=== PATIENT | male | born 1965 | race Caucasian/White ===

== ENCOUNTER → 2017-11-27 10:53 | Outpatient (CLI) | payer OTHER, SELFPAY ==
--- NOTE | 2017-11-27 | DI.CT.S_ITS ---
PROCEDURE: CT ABDOMEN PELVIS WO/W CON INDICATIONS: Painless, gross hematuria TECHNIQUE: Optional 5 mm thick noncontrast images acquired from the diaphragm to the symphysis pubis. After the administration of intravenous contrast, 5 mm thick images acquired from the diaphragm to the symphysis pubis after a 10-minute delay. 2 mm thick coronal and sagittal reformats were then performed of the kidneys and ureters. For radiation dose reduction, the following was used: automated exposure control, adjustment of mA and/or kV according to patient size. COMPARISON: [facility], CT, KIDNEY/ URETER/BLADDER, 09/14/2017, 20:01. [facility], US, RENAL COMPLETE, 10/01/2017, 11:13. FINDINGS: Image quality: Excellent. Lung bases: Lung bases are clear. Heart size is normal. Urinary system: Both kidneys are normal in size, without hydronephrosis or nephrolithiasis on pre-contrast images. No perinephric fat stranding. There is normal bilateral renal enhancement. There are at least 6 cysts present in the right kidney, the largest in the upper pole medially measuring 1.7 cm and the largest in the lower pole posteriorly measuring 1.1 cm. Renal calyces appear normal in morphology when filled with contrast. Opacified portions of both ureters demonstrate normal caliber. Bladder wall shows mild, uniform thickening. No calcified bladder stones. Other solid organs: Liver is normal in size and enhancement. Gallbladder appears normal. Biliary system is non dilated. Pancreas enhances normally. Spleen is normal in size and enhancement. No adrenal nodules. Peritoneum and bowel: Bowel loops demonstrate normal wall thickness and caliber. Normal appendix. No free fluid or air. Nodes and vessels: No retroperitoneal or mesenteric adenopathy by size criteria. Aorta and inferior vena cava are normal in size. Abdominal wall: No ventral hernias. Pelvis: No pathologic free pelvic fluid. Fat filled left inguinal hernias, no adenopathy. Normal size prostate with central calcifications. Bones: No suspicious bony lesions. No vertebral body compression fractures. IMPRESSION: 1. Multiple simple cysts in the right kidney, smallest hypodensities being too small to characterize. No nephrolithiasis or hydronephrosis. 2. Mild, uniform urinary bladder wall thickening, possibly representing chronic outlet obstruction or cystitis but likely related to incomplete distention. Dictated by: Benji Reddy M.D. on 11/27/2017 at 13:02 Approved by: Benji Reddy M.D. on 11/27/2017 at 13:13
== END ==
PROVIDERS: PCP Physician Assistant; Visit Provider Specialist
DX: R31.0 Gross hematuria (principal); N28.1 Cyst of kidney, acquired; N32.89 Other specified disorders of bladder
CPT/HCPCS: 74178; Q9967